=== PATIENT | female | born 1980 | race Caucasian/White ===

== ENCOUNTER 2018-12-21 21:47 | Emergency (ER) | payer OTHER, SELFPAY ==
[2018-12-21 21:50] VITALS: BP 128/74; PULSE 66; RESP 14; O2SAT 99
--- NOTE | 2018-12-21 21:57 | ED.WOUNDLAC ---
HPI - Wound/Laceration General Chief Complaint: Wound/Laceration Stated Complaint: LAC on rt pointer finger Time Seen by Provider: 12/21/18 21:51 Source: patient Mode of arrival: Ambulatory Limitations: no limitations History of Present Illness HPI narrative: 38-year-old female here for evaluation of a laceration to her right index finger. She states that she went to car pick up driver a glass and she cut herself on the glass. Had bleeding afterwards. Put pressure on it prior to arrival however she blood through several bandages so she thought she needed to come into the emergency department for evaluation of potential stitches. Related Data Allergies Allergy/AdvReac Type Severity Reaction Status Date / Time Latex, Natural Rubber Allergy Verified 12/21/18 21:51 Sulfa (Sulfonamide Allergy Verified 12/21/18 21:51 Antibiotics) Review of Systems Constitutional Constitutional: Denies fever(s) Musculoskeletal Musculoskeletal: Denies tingling Integumentary/Breasts Skin/Breast: Reports lesions and Denies rash Neurologic Neurologic: Denies tingling and Denies tremor(s) Hematologic/Lymphatic Hematologic/Lymphatic: Denies easy bleeding and Denies easy bruising Patient History Medical History Patient denies medical problems (Acute) Social History Smoking Status: Never smoker Substance Use Type: does not use Exam Initial Vital Signs Initial Vital Signs: Vital Signs Pulse Rate 66 12/21/18 21:50 Respiratory Rate 14 12/21/18 21:50 Blood Pressure 128/74 12/21/18 21:50 Pulse Oximetry 99 12/21/18 21:50 Const General: cooperative, comfortable, well developed and well groomed Orientation: alert and awake Cardio Pulses: radial pulses present on the right Skin Other: Patient with a laceration on the ulnar aspect of the right index finger just proximal to the D IP joint. 2 cm long Neuro Cognition: normal cognition Speech: speech normal Sensory Exam: no sensory deficits noted Extrem Other: Full range of motion of MCP DI p.m. PIP joint of the right index finger Psych Appearance: grossly normal and well kempt Procedures Laceration Repair Laceration 1: Site: hand Side (If applicable): right Size (cm): 2 Description: linear Depth: simple, single layer Pre-repair: irrigated extensively Skin layer closed with: dermabond Course Vital Signs Vital signs: Vital Signs - 8 hr 12/21/18 21:50 Pulse Rate 66 Respiratory Rate 14 Blood Pressure 128/74 Pulse Oximetry 99 MDM - Wound/Laceration MDM Narrative Medical decision making narrative: Neurovascularly intact, wound was well approximated after irrigation. Dermabond was placed over the area. Patient was given care instructions and return precautions. She expressed understanding and agreement plan. Discharge Plan Departure Patient Disposition: Home Clinical Impression: Laceration Discharge Date/Time: 12/21/18 22:05 Instructions: DI for Minor Laceration Activity Restrictions/Additional Instructions: The Dermabond will eventually come off on its own in the next few days. Until then you can wash your hands like normal. You can use soap and water like normal. Return to the emergency department for any new or worsening symptoms Referrals: Renu Martinez MD [Primary Care Provider] -
== END 2018-12-21 22:05 | disposition home or self-care (01) ==
LOC: ED 22:10
PROVIDERS: Emergency Provider Emergency Medicine; PCP Family Medicine
DX: S61.210A Laceration without foreign body of right index finger without damage to nail, initial encounter (principal)
CPT/HCPCS: 99282; 99283